=== PATIENT | male | born 1980 | race African-American/Black ===

== ENCOUNTER → 2020-07-31 | Outpatient (CLI) | payer SELFPAY | END | disposition home or self-care (01) | LOC: COVID19 09:23 | PROVIDERS: ATTEND Nurse Practitioner Adult Health | DX: R51.9 Headache, unspecified (principal); Z20.822 Contact with and (suspected) exposure to COVID-19 ==

== ENCOUNTER → 2021-04-15 | Outpatient (CLI) | payer OTHER | END | disposition home or self-care (01) | LOC: COVID19 16:12 | PROVIDERS: ATTEND Student in an Organized Health Care Education/Training Program | DX: U07.1 COVID-19 (principal) ==

== ENCOUNTER 2021-07-07 08:32 | Emergency (ER) | payer BC ==
[~2021-07-07] VITALS: Ht 177.8 cm; Wt 79.4 kg
[2021-07-07 10:14] LABS: BASO % 0.3 % (0.0-1.0); EOS # 0.1 10*3/uL (0.0-0.4); EOS % 1.3 % (1.0-4.0); HEMATOCRIT 42.4 % (42.0-52.0); LYMPH # 1.2 10*3/uL (1.3-4.4); LYMPH % 12.5 % (27.0-41.0); MEAN CELL VOLUME 93.4 fl (80.0-94.0); MEAN CORPUSCULAR HGB 30.2 pg (27.0-31.0); MEAN CORPUSCULAR HGB CONC 32.3 g/dl (33.0-37.0); MEAN PLATELET VOLUME 9.7 fl (9.6-12.3); MONO # 0.9 10*3/uL (0.1-1.0); NEUT # 7.1 10*3/uL (2.3-7.9); NEUT % 75.6 % (47.0-73.0); PLATELET COUNT AUTOMATED 232 10*3/uL (130-400); RED BLOOD COUNT 4.54 10*6/uL (4.50-5.90); RED CELL DISTRI WIDTH 14.1 % (0-14.5); WHITE BLOOD COUNT 9.4 10*3/uL (4.8-10.8)
[2021-07-07 10:33] LABS: ALBUMIN 3.4 gm/dl (3.1-4.5); ALKALINE PHOSPHATASE 85 U/L (45-117); BUN 10 mg/dl (7-24); CHLORIDE 107 mmol/L (98-107); CREATININE 1.06 mg/dL (0.70-1.30); SGOT/AST 21 IU/L (3-35); SGPT/ALT 35 U/L (12-78); SODIUM 139 mmol/L (136-145); TOTAL PROTEIN 7.6 gm/dL (6.4-8.2)
[2021-07-07] MEDS ORDERED: AUGMENTIN 875875 MG PO (11:29)
== END 2021-07-07 11:52 | disposition home or self-care (01) ==
LOC: ED 08:32
PROVIDERS: Family Medicine
DX: J02.0 Streptococcal pharyngitis (principal)

== ENCOUNTER → 2024-06-23 | Outpatient (CLI) | payer MEDICAID ==
[~2024-06-23] MED LIST: AUGMENTIN 875875 MG PO
[2024-06-23 13:43] LABS: BASO # 0.1 10*3/uL (0.0-0.1); BASO % 0.7 % (0.0-1.0); EOS # 0.1 10*3/uL (0.0-0.4); EOS % 1.6 % (1.0-4.0); MEAN CELL VOLUME 84.1 fl (80.0-94.0); MEAN CORPUSCULAR HGB 25.6 pg (27.0-31.0); MEAN CORPUSCULAR HGB CONC 30.5 g/dl (33.0-37.0); MEAN PLATELET VOLUME 9.6 fl (9.6-12.3); MONO # 0.7 10*3/uL (0.1-1.0); MONO % 8.5 % (3.0-9.0); NEUT # 5.4 10*3/uL (2.3-7.9); NEUT % 70.1 % (47.0-73.0); PLATELET COUNT AUTOMATED 302 10*3/uL (130-400); RED BLOOD COUNT 5.23 10*6/uL (4.50-5.90); RED CELL DISTRI WIDTH 21.5 % (0-14.5); WHITE BLOOD COUNT 7.7 10*3/uL (4.8-10.8)
[2024-06-23 14:42] LABS: VITAMIN D, 25-HYDROXY 15.5 ng/mL (30-100)
[2024-06-23 14:47] LABS: BUN 10 mg/dl (9-23); CHLORIDE 101 mmol/L (98-107); CHOLESTEROL 194 mg/dL (<200); FREE T4 1.19 ng/dl (0.89-1.76); LDL CHOLESTEROL 112 mg/dL (9-159); POTASSIUM 3.7 mmol/L (3.4-5.1); SGPT/ALT 16 U/L (5-49); TRIGLYCERIDES 108 mg/dl (<150)
[2024-06-23 14:59] LABS: ALKALINE PHOSPHATASE 89 U/L (46-116)
[2024-06-24 06:09] LABS: HBsAG SCREEN Negative (Negative); HCV Ab Non Reactive (Non Reactive); HEP B CORE Ab, IgM Negative (Negative)
== END | disposition home or self-care (01) ==
LOC: LAB 13:02
PROVIDERS: ATTEND Internal Medicine
DX: Z11.3 Encounter for screening for infections with a predominantly sexual mode of transmission (principal); I10 Essential (primary) hypertension; F10.11 Alcohol abuse, in remission

== ENCOUNTER 2024-08-09 17:20 | Inpatient (IN) | payer MEDICAID ==
[~2024-08-09] VITALS: Ht 177.8 cm; Wt 75.4 kg
[2024-08-09 18:11] VITALS: BP 157/97
[2024-08-09 18:39] LABS: BASO # 0.1 10*3/uL (0.0-0.1); BASO % 0.6 % (0.0-1.0); EOS # 0.4 10*3/uL (0.0-0.4); EOS % 4.8 % (1.0-4.0); HEMATOCRIT 43.7 % (42.0-52.0); MEAN CORPUSCULAR HGB 27.2 pg (27.0-31.0); MEAN CORPUSCULAR HGB CONC 31.6 g/dl (33.0-37.0); MEAN PLATELET VOLUME 9.8 fl (9.6-12.3); MONO # 0.9 10*3/uL (0.1-1.0); MONO % 10.6 % (3.0-9.0); NEUT % 59.6 % (47.0-73.0); PLATELET COUNT AUTOMATED 229 10*3/uL (130-400); RED BLOOD COUNT 5.08 10*6/uL (4.50-5.90); RED CELL DISTRI WIDTH 17.2 % (0-14.5); WHITE BLOOD COUNT 8.3 10*3/uL (4.8-10.8)
[2024-08-09 18:58] LABS: ALKALINE PHOSPHATASE 75 U/L (46-116); BUN 12 mg/dl (9-23); CHLORIDE 103 mmol/L (98-107); POTASSIUM 3.9 mmol/L (3.4-5.1); SGPT/ALT 12 U/L (5-49); TOTAL PROTEIN 7.3 gm/dL (6.0-8.0)
[2024-08-09 18:58] LABS: URINE AMPHETAMINES Negative (1000ng/ml); URINE BARBITURATES Negative (200ng/ml); URINE BENZODIAZEPINES Negative (200ng/ml); URINE CANNABINOIDS (THC) Positive (50ng/ml); URINE COCAINE Positive (300ng/ml); URINE METHADONE Negative (300ng/ml); URINE OPIATES Negative (300ng/ml); URINE PHENCYCLIDINE Negative (25ng/ml)
[2024-08-09 19:00] LABS: ETHYL ALCOHOL < 3.0 mg/dl (<3)
[2024-08-09] MEDS ORDERED: BISACODYL 10 MG SUPP R PRN (20:20)
[2024-08-09] MEDS ORDERED: Acetaminophen/Hydrocodone 5 MG/325 MG TABLET PO PRN (20:20)
[2024-08-09] MEDS ORDERED: Ondansetron Hydrochloride 4 MG/2 ML VIAL IV PRN (20:20)
[2024-08-09] MEDS ORDERED: BISACODYL 5 MG TAB PO PRN (20:20)
[2024-08-09] MEDS ORDERED: Magnesium Hydroxide 30 ML UDC PO PRN (20:20)
[2024-08-09] MEDS ORDERED: ACETAMINOPHEN 325 MG TAB PO PRN (20:20)
[2024-08-09] MEDS ORDERED: ACETAMINOPHEN 650 MG SUPP R PRN (20:20)
[2024-08-09] MEDS ORDERED: METHOCARBAMOL 750 MG TAB PO PRN (20:25)
[2024-08-09] MEDS ORDERED: Dicyclomine Hydrochloride 20 MG TAB PO PRN (20:25)
[2024-08-09] MEDS ORDERED: Water, Sterile 10 ML VIAL IV PRN (20:25)
[2024-08-09] MEDS ORDERED: hydrOXYzine 50 MG CAP PO PRN (20:25)
[2024-08-09] MEDS ORDERED: FOLIC ACID 1 MG TAB PO ONE (20:25)
[2024-08-09] MEDS ORDERED: MAGNESIUM SULFATE 100 ML IV ONE (20:25)
[2024-08-09] MEDS ORDERED: CITALOPRAM20 MG PO (20:34)
[2024-08-09] MEDS ORDERED: FERROUS GLUCON324 MG PO (20:34)
[2024-08-09] MEDS ORDERED: ATARAX,VISTARIL10 MG PO (20:34)
[2024-08-09] MEDS ORDERED: 24 HOUR ALLERG9.9 ML INH (20:35)
[2024-08-09] MEDS ORDERED: LORATADINE-D 11 EACH PO (20:35)
[2024-08-09] MEDS ORDERED: MINIPRESS5 M1 PO (20:36)
[2024-08-09] MEDS ORDERED: VITAMIN D350 MC2 PO (20:36)
[2024-08-09] MEDS ORDERED: OMEPRAZOLE40 MG PO (20:36)
[2024-08-09] MEDS ORDERED: TRAZODONE50 MG PO (20:36)
[2024-08-09] MEDS ORDERED: LORazepam 1 MG TAB PO SCH (22:00)
[2024-08-09] MEDS ORDERED: Thiamine 200 MG/2 ML VIAL IV SCH (22:00)
[2024-08-09 22:10] VITALS: BP 154/91
[2024-08-09 22:42] VITALS: BP 154/91
[2024-08-10 08:00] VITALS: BP 134/68
[2024-08-10 08:52] LABS: BASO # 0.1 10*3/uL (0.0-0.1); BASO % 0.7 % (0.0-1.0); EOS # 0.4 10*3/uL (0.0-0.4); EOS % 4.7 % (1.0-4.0); HEMATOCRIT 43.8 % (42.0-52.0); MEAN CELL VOLUME 86.7 fl (80.0-94.0); MEAN CORPUSCULAR HGB 27.1 pg (27.0-31.0); MEAN CORPUSCULAR HGB CONC 31.3 g/dl (33.0-37.0); MEAN PLATELET VOLUME 10.7 fl (9.6-12.3); MONO # 0.8 10*3/uL (0.1-1.0); MONO % 9.9 % (3.0-9.0); NEUT # 4.5 10*3/uL (2.3-7.9); NEUT % 58.3 % (47.0-73.0); PLATELET COUNT AUTOMATED 230 10*3/uL (130-400); RED BLOOD COUNT 5.05 10*6/uL (4.50-5.90); RED CELL DISTRI WIDTH 17.4 % (0-14.5); WHITE BLOOD COUNT 7.7 10*3/uL (4.8-10.8)
[2024-08-10 09:23] LABS: BUN 11 mg/dl (9-23); CHLORIDE 101 mmol/L (98-107); POTASSIUM 4.1 mmol/L (3.4-5.1)
[2024-08-10] MEDS ORDERED: MULTIVITAMIN 1 TAB TAB PO SCH (10:00)
[2024-08-10] MEDS ORDERED: Enoxaparin Sodium 40 MG/0.4 ML SYR SC SCH (10:00)
[2024-08-10 12:00] VITALS: BP 136/62
[2024-08-10 16:00] VITALS: BP 131/73
[2024-08-10 20:00] VITALS: BP 120/81
[2024-08-11] VITALS: BP 125/81
[2024-08-11] MEDS ORDERED: LORazepam 1 MG TAB PO PRN
[2024-08-11] MEDS ORDERED: LORazepam 1 MG TAB PO SCH
[2024-08-11] MEDS ORDERED: Pantoprazole Sodium 20 MG TAB PO SCH (06:00)
[2024-08-11 06:26] LABS: BUN 9 mg/dl (9-23); CHLORIDE 104 mmol/L (98-107); POTASSIUM 4.3 mmol/L (3.4-5.1)
[2024-08-11 08:00] VITALS: BP 128/87
[2024-08-11] MEDS ORDERED: Prazosin Hydrochloride 5 MG CAP PO SCH (10:00)
[2024-08-11] MEDS ORDERED: CITALOPRAM 20 MG TAB PO SCH (10:00)
[2024-08-11 12:00] VITALS: BP 120/78
[2024-08-11 16:00] VITALS: BP 121/73
[2024-08-11] MEDS ORDERED: Loratadine/Pseudoephedrine S 1 TAB TAB PO SCH (17:15)
[2024-08-11] MEDS ORDERED: FLUTICASONE PROPIONATE Nasal 16 Gm spray NAS SCH (17:15)
[2024-08-11 20:00] VITALS: BP 116/68
[2024-08-12] VITALS: BP 130/70
[2024-08-12 08:00] VITALS: BP 125/83
[2024-08-12 12:00] VITALS: BP 133/87
[2024-08-12 16:00] VITALS: BP 114/81
[2024-08-12] MEDS ORDERED: VITAMIN D350 MC2 PO (18:33)
[2024-08-12] MEDS ORDERED: FERROUS GLUCON324 MG PO (18:33)
[2024-08-12] MEDS ORDERED: OMEPRAZOLE40 MG PO (18:33)
[2024-08-12] MEDS ORDERED: CITALOPRAM20 MG PO (18:33)
[2024-08-12] MEDS ORDERED: METHOCARBAMOL750 M1 PO (18:33)
[2024-08-12] MEDS ORDERED: MINIPRESS5 M1 PO (18:33)
[2024-08-12] MEDS ORDERED: TRAZODONE50 MG PO (18:33)
[2024-08-12] MEDS ORDERED: 24 HOUR ALLERG9.9 ML INH (18:33)
[2024-08-12] MEDS ORDERED: LORATADINE-D 11 EACH PO (18:33)
== END 2024-08-12 19:00 | disposition home or self-care (01) | DRG 775 ==
LOC: ED 17:20 → 4E 19:30 → EDHOLD 19:30 → 4E 21:35
PROVIDERS: Physician Assistant Medical; Student in an Organized Health Care Education/Training Program; ADMIT Internal Medicine; ATTEND Internal Medicine
DX: F10.930 Alcohol use, unspecified with withdrawal, uncomplicated (principal); F19.10 Other psychoactive substance abuse, uncomplicated; F17.210 Nicotine dependence, cigarettes, uncomplicated; Z79.899 Other long term (current) drug therapy; Z79.01 Long term (current) use of anticoagulants; Z71.6 Tobacco abuse counseling; Y90.9 Presence of alcohol in blood, level not specified

== ENCOUNTER 2025-02-26 12:24 | Emergency (ER) | payer MEDICAID ==
[~2025-02-26] VITALS: Ht 177.8 cm; Wt 77.1 kg
[~2025-02-26 12:24] MED LIST changes: +24 HOUR ALLERG9.9 ML INH; +ATARAX,VISTARIL10 MG PO; +CITALOPRAM20 MG PO; +FERROUS GLUCON324 MG PO; +LORATADINE-D 11 EACH PO; +METHOCARBAMOL750 M1 PO; +MINIPRESS5 M1 PO; +OMEPRAZOLE40 MG PO; +TRAZODONE50 MG PO; +VITAMIN D350 MC2 PO
[2025-02-26 12:57] LABS: BASO # 0.1 10*3/uL (0.0-0.1); BASO % 0.5 % (0.0-1.0); EOS # 0.2 10*3/uL (0.0-0.4); EOS % 1.7 % (1.0-4.0); MEAN CELL VOLUME 92.2 fl (80.0-94.0); MEAN CORPUSCULAR HGB 30.1 pg (27.0-31.0); MEAN PLATELET VOLUME 10.0 fl (9.6-12.3); MONO # 1.1 10*3/uL (0.1-1.0); MONO % 11.0 % (3.0-9.0); NEUT # 7.2 10*3/uL (2.3-7.9); NEUT % 71.3 % (47.0-73.0); NUCLEATED RED BLOOD CELL 0.0 % (0.0-0.0); NUCLEATED RED BLOOD CELL 0.0 10*3/uL (0.0-0.0); PLATELET COUNT AUTOMATED 255 10*3/uL (130-400); RED CELL DISTRI WIDTH 17.8 % (0-14.5)
[2025-02-26 13:24] LABS: BUN 9 mg/dl (9-23); SGPT/ALT 12 U/L (5-49)
[2025-02-26] MEDS ORDERED: Cyclobenzaprine Hydrochlorid 10 MG TAB PO ONE (16:20)
[2025-02-26] MEDS ORDERED: CYCLOBENZAPRINE5 M3 PO (16:28)
== END 2025-02-26 16:41 | disposition home or self-care (01) ==
LOC: ED 12:24
PROVIDERS: Internal Medicine
DX: M62.838 Other muscle spasm (principal)